=== PATIENT | female | born 1995 | race American Indian/Alaskan Native ===

== ENCOUNTER 2017-03-10 17:44 | Emergency (ER) | payer BC, MEDICAID | END 2017-03-10 18:00 | disposition left against medical advice (07) | LOC: ED 17:44 | DX: Z53.21 Procedure and treatment not carried out due to patient leaving prior to being seen by health care provider (principal) ==

== ENCOUNTER 2018-09-18 12:33 | Emergency (ER) | payer BC, MEDICAID ==
[2018-09-18 12:42] VITALS: BP 130/74
--- NOTE | 2018-09-18 12:44 | Emergency Department Report ---
Blank Doc - Documentation Documentation: 23 y o female presents with right toe pain and swelling worsened with walking denies fall, injury trauma states LMP 06/2018 This initial assessment diagnostic orders/clinical plan/treatment (s) is/Are subject change based on patient's health status, clinical progression and re- assessment by fellow clinical providers in the ED. Further treatment and work-up at subsequent clinical providers discretion. Patient/guardians urged not to elope from their condition may be serious if not clinically assessed and managed. Initial order include: XR foot
--- NOTE | 2018-09-18 14:16 | XRay Report ---
PROCEDURE: XR FOOT 2V LT TECHNIQUE: 2 views of the left foot. HISTORY:pain/swelling COMPARISON: None FINDINGS: There is no acute fracture seen. There is no dislocation seen. There is no focal osseous lesion identified. IMPRESSION: There is no acute abnormality identified. This document is electronically signed by Colette Singh MD., September 18 2018 02:13:41 PM ET
--- NOTE | 2018-09-18 14:36 | Emergency Department Report ---
ED Lower Extremity HPI - General Chief Complaint: Extremity Injury, Lower Stated Complaint: (L) ANKLE FOOT SWOLLEN Time Seen by Provider: 09/18/18 12:41 Source: patient Mode of arrival: Ambulatory Limitations: No Limitations - History of Present Illness Initial Comments: Sustained 23-year-old -[place] female who presents with left foot pain radiating to the ankle for 5 days. Patient states she woke up Friday morning with severe pain to the left ankle and foot. She was using icy hot rub with minimal improvement of symptoms. Patient reports pain is worse to move. Currently pain is 4 out of 10 on pain scale and nonradiating. She does not recall injuring. She reports pain is improved with wrist in elevation. She denies numbness or tingling, paresthesias, weakness, warmth, or swelling. MD Complaint: foot injury (left) Onset/Timin -: days(s) Injury: Foot: Left Type of Injury: unknown Place: home Severity: mild Severity scale (0 -10): 4 Improves With: immobilization, rest Associated Symptoms: able to partially bear weight, ambulatory. denies: snap/pop sensation, swelling, numbness, tingling, unable to bear weight Treatments Prior to Arrival: cold therapy, NSAIDS - Related Data Previous Rx's Medication Instructions Recorded Last Taken Type Naproxen [Naprosyn] 500 mg PO TID PRN #15 tablet 09/18/18 Unknown Rx Allergies Allergy/AdvReac Type Severity Reaction Status Date / Time No Known Allergies Allergy Verified 02/14/15 03:29 ED Review of Systems ROS: Stated complaint: (L) ANKLE FOOT SWOLLEN Other details as noted in HPI Constitutional: denies: chills, fever Respiratory: denies: cough, shortness of breath, wheezing Cardiovascular: denies: chest pain, palpitations Gastrointestinal: denies: abdominal pain, nausea, diarrhea Musculoskeletal: arthralgia (left foot). denies: back pain, joint swelling Skin: denies: rash, lesions Neurological: denies: headache, weakness, paresthesias Psychiatric: denies: anxiety, depression ED Past Medical Hx - Past Medical History Previous Medical History?: No - Surgical History Past Surgical History?: No - Social History Smoking Status: Never Smoker Substance Use Type: None - Medications Home Medications: Home Medications Medication Instructions Recorded Confirmed Last Taken Type Naproxen [Naprosyn] 500 mg PO TID PRN #15 tablet 09/18/18 Unknown Rx ED Physical Exam - General Limitations: No Limitations General appearance: alert, in no apparent distress, obese (morbidly obese) - Respiratory Respiratory exam: Present: normal lung sounds bilaterally. Absent: respiratory distress - Cardiovascular Cardiovascular Exam: Present: regular rate, normal rhythm. Absent: systolic murmur, diastolic murmur, rubs, gallop - GI/Abdominal GI/Abdominal exam: Present: soft, normal bowel sounds. Absent: distended, tenderness, guarding, rebound, rigid, organomegaly, mass - Expanded Lower Extremity Exam Left Hip exam: Present: normal inspection, full ROM Upper Leg exam: Present: normal inspection, full ROM Knee exam: Present: normal inspection, full ROM Lower Leg exam: Present: normal inspection, full ROM Ankle exam: Present: normal inspection, full ROM (painful FROM). Absent: tenderness, swelling, abrasion, laceration, ecchymosis, deformity, crepidus, dislocation, erythema, anterior draw sign Foot/Toe exam: Present: full ROM, tenderness (tenderness on palpation of 1st-2nd metatarsals, no erythema or swelling). Absent: swelling, abrasion, laceration, ecchymosis, deformity, crepidus, dislocation, erythema, amputation, puncture wound, foreign body, calcaneal tenderness, tenderness at base of 5th metatarsal, nail avulsion, subungual hematoma Neuro vascular tendon exam: Present: no vascular compromise Gait: Positive: observed and limited by pain - Neurological Exam Neurological exam: Present: alert, oriented X3 - Psychiatric Psychiatric exam: Present: normal affect, normal mood - Skin Skin exam: Present: warm, dry, intact, normal color. Absent: rash ED Course Vital Signs 09/18/18 12:39 Temperature 98.6 F Pulse Rate 90 Respiratory 18 Rate Blood Pressure 130/74 O2 Sat by Pulse 99 Oximetry ED Lower Extremity MDM - Radiology Data Radiology results: report reviewed PROCEDURE: XR FOOT 2V LT TECHNIQUE: 2 views of the left foot. HISTORY:pain/swelling COMPARISON: None FINDINGS: There is no acute fracture seen. There is no dislocation seen. There is no focal osseous lesion identified. IMPRESSION: There is no acute abnormality identified. - Medical Decision Making Patient was examined by me. Vitals are normal and patient is in no acute distress. Obtained a x-ray of left ankle. X-rays read dictated by radiologist and no acute findings. Patient informed of results. Yrn wrap applied to left ankle and foot. Obesity Muscle strain of left foot Start naproxen for pain. Referral to Orthopedic Surgeon. Plan discussed with patient to discharge home and treat outpatient. Patient discharged home in stable condition. Follow up with PCP in 2-3 days. Critical care attestation.: If time is entered above; I have spent that time in minutes in the direct care of this critically ill patient, excluding procedure time. ED Disposition Clinical Impression: Left foot pain Muscle strain of foot Qualifiers: Encounter type: initial encounter Laterality: left Qualified Code(s): S96.912A - Strain of unspecified muscle and tendon at ankle and foot level, left foot, initial encounter Obesity Qualifiers: Obesity type: due to excess calories Obesity classification: adult class 3 (BMI >= 40) Serious obesity comorbidity presence: without serious comorbidity Body mass index: BMI 50.0-59.9 Qualified Code(s): E66.01 - Morbid (severe) obesity due to excess calories Disposition: TO HOME OR SELFCARE Is pt being admited?: No Does the pt Need Aspirin: No Condition: Stable Instructions: Arthralgia (ED), Ankle Exercises (GEN) Additional Instructions: Rest Use ice or heat on affected area for 20 minutes and off for 2 hours. Take pain medication every 6-8 hours as needed for pain. If symptoms are not improving as discussed follow up with Orthopedic Surgeon from referrals bellow. Follow up with Primary Care Provider in 2-3 days. Prescriptions: Naproxen [Naprosyn] 500 mg PO TID PRN #15 tablet PRN Reason: Pain , Severe (7-10) Referrals: DAYSI JARQUIN MD [Primary Care Provider] - 3-5 Days [facility] [Outside] - 3-5 Days [facility] [Outside] - 3-5 Days ANGELA LORA MD [Staff Physician] - 3-5 Days Forms: Work/School Release Form(ED) Time of Disposition: 14:43
== END 2018-09-18 14:56 | disposition home or self-care (01) ==
LOC: ED 12:33
DX: S96.912A Strain of unspecified muscle and tendon at ankle and foot level, left foot, initial encounter (principal); E66.01 Morbid (severe) obesity due to excess calories; Z68.43 Body mass index [BMI] 50.0-59.9, adult; X58.XXXA Exposure to other specified factors, initial encounter; Y93.89 Activity, other specified; Y92.098 Other place in other non-institutional residence as the place of occurrence of the external cause; Y99.8 Other external cause status
CPT/HCPCS: 99283